=== PATIENT | male | born 1935 | race Caucasian/White ===

== ENCOUNTER → 2017-07-19 | Outpatient (CLI) | payer MEDICARE, BC ==
[~2017-07-19] MED LIST: ANUSOL-HC SUPP25 M1 PR; ASPIRIN81 M2 PO; HYDROXYUREA500 M1 PO; LEVOTHYROXINE25 MCG PO; LISINOPRIL20 MG PO; TOPROL XL PO
[2017-07-19 17:07] LABS: INR 2.4; PROTHROMBIN TIME (PATIENT) 26.1 SECONDS (10.0-11.7)
== END | disposition home or self-care (01) ==
LOC: CLAB 16:38
PROVIDERS: Internal Medicine Cardiovascular Disease
DX: I48.91 Unspecified atrial fibrillation (principal)
CPT/HCPCS: 36415; 85610

== ENCOUNTER → 2017-07-31 | Outpatient (CLI) | payer MEDICARE, BC ==
[2017-07-31 20:42] LABS: INR 2.5; PROTHROMBIN TIME (PATIENT) 27.4 SECONDS (10.0-11.7)
== END | disposition home or self-care (01) ==
LOC: CLAB 20:09
PROVIDERS: Internal Medicine Cardiovascular Disease
DX: I48.91 Unspecified atrial fibrillation (principal)
CPT/HCPCS: 36415; 85610